=== PATIENT | female | born 1990 | race Caucasian/White ===

== ENCOUNTER 2021-02-05 14:58 | Emergency (ER) | payer OTHER ==
[~2021-02-05] VITALS: Ht 162.6 cm; Wt 113.4 kg
[2021-02-05 15:05] VITALS: BP 107/80
[2021-02-05] MEDS ORDERED: ACETAMINOPHEN ES 500 MG TABLET ONE (15:18)
[2021-02-05] MEDS ORDERED: ACETAMINOPHEN ES 500 MG TABLET PO ONE (15:30)
--- NOTE | 2021-02-05 16:14 | NUR ---
Surgical shoe and crutches by REJI Kirkland. Gait training done by same Patient discharged to home in stable condition. Written and verbal after care instructions given. Patient verbalizes understanding of instruction.
== END 2021-02-05 16:15 | disposition home or self-care (01) ==
LOC: ER 15:03
DX: S92.355A Nondisplaced fracture of fifth metatarsal bone, left foot, initial encounter for closed fracture (principal); F31.9 Bipolar disorder, unspecified; Z88.2 Allergy status to sulfonamides; W05.1XXA Fall from non-moving nonmotorized scooter, initial encounter; Y93.I9 Activity, other involving external motion; Y92.89 Other specified places as the place of occurrence of the external cause; Y99.8 Other external cause status
CPT/HCPCS: 73564-TC; 73610-TC; 73630-TC